=== PATIENT | female | born 1960 | race Caucasian/White ===

== ENCOUNTER 2017-12-25 22:53 | Inpatient (IN) | payer OTHER ==
[2017-12-25 23:26] LABS: ADD MAN DIFF? NO
[2017-12-25 23:29] LABS: BASO # 0.1 x10^3/uL (0.0-0.2); BASO % 1 % (0-3); EOS # 0.6 x10^3/uL (0.0-0.7); EOS % 5 % (0-3); HEMATOCRIT 43.7 % (36.0-47.0); HEMOGLOBIN 14.8 g/dL (12.0-15.5); LYMPH # 4.5 x10^3/uL (1.0-4.8); LYMPH % 37 % (24-48); MEAN CORPUSCULAR HEMOGLOBIN 30 pg (25-35); MEAN CORPUSCULAR HGB CONC 34 g/dL (31-37); MEAN CORPUSCULAR VOLUME 88 fL (79-100); MONO # 0.8 x10^3/uL (0.0-1.1); MONO % 6 % (0-9); NEUT # 6.2 x10^3uL (1.8-7.7); NEUT % 51 % (31-73); PLATELET COUNT 324 x10^3/uL (140-400); RED BLOOD COUNT 4.98 x10^6/uL (3.50-5.40); RED CELL DISTRIBUTION WIDTH 13.6 % (11.5-14.5); WHITE BLOOD COUNT 12.3 x10^3/uL (4.0-11.0)
[2017-12-25 23:38] LABS: ANION GAP 9 (6-14); BLOOD UREA NITROGEN 18 mg/dL (7-20); BUN/CREATININE RATIO 23 (6-20); CALCIUM 9.2 mg/dL (8.5-10.1); CARBON DIOXIDE 28 mmol/L (21-32); CHLORIDE 106 mmol/L (98-107); CREATININE 0.8 mg/dL (0.6-1.0); GFR 74.2; GLUCOSE 127 mg/dL (70-99); POTASSIUM 3.6 mmol/L (3.5-5.1); SODIUM 143 mmol/L (136-145)
[2017-12-25 23:44] LABS: ALBUMIN 3.2 g/dL (3.4-5.0); ALBUMIN/GLOBULIN RATIO 0.7 (1.0-1.7); ALK PHOS 106 U/L (46-116); ALT (SGPT) 34 U/L (14-59); AST (SGOT) 25 U/L (15-37); LIPASE 228 U/L (73-393); MAGNESIUM 1.9 mg/dL (1.8-2.4); TOTAL BILIRUBIN 0.3 mg/dL (0.2-1.0); TOTAL PROTEIN 7.8 g/dL (6.4-8.2)
[2017-12-25 23:45] LABS: TROPONINI < 0.017 ng/mL (0.000-0.055)
[2017-12-25] MEDS: NITROGLYCERIN OINT 1 GM PACKET. TP (23:45)
[2017-12-25 23:46] LABS: D-DIMER 0.59 ug/mlFEU (0.00-0.50)
[2017-12-25 23:52] LABS: CKMB MASS 0.8 ng/mL (0.0-3.6); CREATINE KINASE 56 U/L (26-192)
[2017-12-25 23:52] LABS: NT-PRO BNP 41 pg/mL (0-124)
[2017-12-26] MEDS ORDERED: CONTRAST GIVEN MC (00:30)
[2017-12-26] MEDS ORDERED: MORPHINE SULFATE 4 MG/ML DISP.SYRIN. IV (01:00)
[2017-12-26] MEDS ORDERED: ONDANSETRON PF 4 MG/2 ML VIAL. IV (01:00)
[2017-12-26] MEDS ORDERED: IOHEXOL 300 MG/ML 100ML VIAL. IV (01:00)
[2017-12-26 06:25] LABS: TROPONINI < 0.017 ng/mL (0.000-0.055)
[2017-12-26] MEDS: NITROGLYCERIN OINT 1 GM PACKET. TP (06:43)
[2017-12-26 09:16] LABS: TROPONINI < 0.017 ng/mL (0.000-0.055)
[2017-12-26] MEDS ORDERED: hydrALAZINE 20 MG/ML VIAL. IVP (11:00)
[2017-12-26 11:26] LABS: CHOLESTEROL 236 mg/dL (0-200); HDLC 75 mg/dL (40-60); LDLC 148 mg/dL (0-100); NON-HDL CHOLESTEROL 161 mg/dL (0-129); TRIGLYCERIDES 64 mg/dL (0-150); VLDLC 13 mg/dL (0-40)
[2017-12-26 11:35] LABS: THYROID STIM HORMONE (TSH) 3.253 uIU/mL (0.358-3.74)
[2017-12-26 11:36] LABS: CHOLESTEROL/HDL RATIO 3.1
[2017-12-26] MEDS: PANTOPRAZOLE IV PUSH 40 MG VIAL. IVP (13:26)
[2017-12-26] MEDS: LISINOPRIL 20 MG TABLET PO (13:27)
[2017-12-26] MEDS: ENOXAPARIN 40 MG/0.4 ML SYRINGE. SQ ×2 (13:27→21:26)
[2017-12-26] MEDS: ATORVASTATIN CALCIUM 20 MG TABLET PO (21:24)
[2017-12-27] MEDS ORDERED: PANTOPRAZOLE 40 MG TABLET.DR. PO ×2 (09:00→16:30)
[2017-12-27] MEDS: ENOXAPARIN 40 MG/0.4 ML SYRINGE. SQ (09:00)
[2017-12-27] MEDS: LISINOPRIL 20 MG TABLET PO (09:46)
[2017-12-27] MEDS: PANTOPRAZOLE IV PUSH 40 MG VIAL. IVP (09:46)
== END 2017-12-27 14:07 | disposition home or self-care (01) | DRG 392 ==
LOC: 6 SOUTH 12-26 00:20 → ER 22:53
DX: K21.9 Gastro-esophageal reflux disease without esophagitis (principal); E66.01 Morbid (severe) obesity due to excess calories; Z68.42 Body mass index [BMI] 45.0-49.9, adult; R07.89 Other chest pain; K80.20 Calculus of gallbladder without cholecystitis without obstruction; E78.5 Hyperlipidemia, unspecified; I10 Essential (primary) hypertension; J45.909 Unspecified asthma, uncomplicated; Z82.49 Family history of ischemic heart disease and other diseases of the circulatory system; Z91.11 Patient's noncompliance with dietary regimen; Z98.84 Bariatric surgery status; F41.9 Anxiety disorder, unspecified; Z88.2 Allergy status to sulfonamides
CPT/HCPCS: 36415; 71045; 71275; 76700; 80053; 80061; 82553; 83690; 83735; 83880; 84443; 84484; 85025; 85379; 93005; 93306; 99291-25; C9113; J1650